=== PATIENT | female | born 1965 | race Hispanic/Latino ===

== ENCOUNTER 2021-02-05 11:49 | Emergency (ER) | payer SELFPAY ==
[2021-02-05] MEDS ORDERED: ASPIRIN 325 MG TAB PO ONE (12:09)
--- NOTE | 2021-02-05 12:17 | Event Note ---
ED Screening Note Date of service: 02/05/21 Time: 12:15 ED Screening Note: Patient with substernal chest pain radiating to the back. Onset this morning. She reports nausea but no vomiting. She denies any other symptoms. She denies any heart disease. She denies any lung disease. She denies any other significant past history. This initial assessment/diagnostic orders/clinical plan/treatment(s) is/are subject to change based on patients health status, clinical progression and re-assessment by fellow clinical providers in the ED. Further treatment and workup at subsequent clinical providers discretion. Patient/guardian urged not to elope from the ED as their condition may be serious if not clinically assessed and managed. Initial orders include: Chest pain order set
--- NOTE | 2021-02-05 12:45 | XRay Report ---
CHEST 2 VIEWS INDICATION / CLINICAL INFORMATION: Chest Pain. COMPARISON: None available. FINDINGS: SUPPORT DEVICES: None. HEART / MEDIASTINUM: No significant abnormality. LUNGS / PLEURA: No significant pulmonary or pleural abnormality. No pneumothorax. ADDITIONAL FINDINGS: No significant additional findings. IMPRESSION: 1. No acute findings. Signer Name: Marcel Mares MD Signed: 02/05/2021 12:41 PM Workstation Name: [id number]
[2021-02-05 12:46] LABS: Basophils % (Auto) 0.3 % (0.0-1.8); Eosinophils % (Auto) 0.3 % (0.0-4.3); Hematocrit 43.1 % (30.3-42.9); Hemoglobin 15.1 gm/dl (10.1-14.3); Lymphocytes # (Auto) 0.9 K/mm3 (1.2-5.4); Lymphocytes % (Auto) 14.5 % (13.4-35.0); Mean Corpuscular HGB Conc 35 % (30-34); Mean Corpuscular Volume 89 fl (79-97); Monocytes # (Auto) 0.3 K/mm3 (0.0-0.8); Monocytes % (Auto) 4.1 % (0.0-7.3); Platelet Count 242 K/mm3 (140-440); Red Blood Count 4.86 M/mm3 (3.65-5.03); Red Cell Distribution Width 12.8 % (13.2-15.2)
[2021-02-05 13:02] VITALS: BP 164/90
[2021-02-05] MEDS ORDERED: PANTOPRAZOLE 40 MG INJ IV ONE (13:04)
[2021-02-05] MEDS ORDERED: MORPHINE 4 MG/1 ML INJ IV ONE (13:04)
[2021-02-05] MEDS ORDERED: ONDANSETRON 4 MG/2 ML INJ IV ONE (13:04)
--- NOTE | 2021-02-05 13:04 | Emergency Department Report ---
ED Chest Pain HPI - General Chief Complaint: Chest Pain Stated Complaint: CHEST TO BACK PAINS Time Seen by Provider: 02/05/21 12:13 Source: patient Mode of arrival: Ambulatory Limitations: No Limitations - History of Present Illness Initial Comments: Patient is 55 years old female with no significant past medical history except for kidney stone. Patient presented to the ER complaining of epigastric pain with no radiation. Patient stated that pain started this morning. Patient stated that the pain associated with nausea but no vomiting. Patient denied any fever or chills. No shortness of breath. MD Complaint: chest pain -: This morning Onset: during rest Pain Location: substernal Pain Radiation: none Severity: moderate Severity scale (0 -10): 5 Quality: sharp Consistency: intermittent - Related Data Allergies Allergy/AdvReac Type Severity Reaction Status Date / Time Latex, Natural Rubber Allergy Itching Verified 02/05/21 11:50 Heart Score - HEART Score History: Slightly suspicious EKG: Non-specific Age: 45-65 Risk factors: 1-2 risk factors Troponin: < normal limit HEART Score: 3 - Critical Actions Critical Actions: 0-3 pts:0.9-1.7%risk of adverse cardiac event.Candidate for discharge ED Review of Systems ROS: Stated complaint: CHEST TO BACK PAINS Other details as noted in HPI Comment: All other systems reviewed and negative Constitutional: denies: chills, fever Respiratory: denies: cough, shortness of breath, SOB with exertion Cardiovascular: chest pain. denies: palpitations, dyspnea on exertion Gastrointestinal: abdominal pain, nausea. denies: vomiting, diarrhea, constipation, hematemesis, melena, hematochezia Musculoskeletal: denies: back pain Neurological: denies: headache, weakness ED Past Medical Hx - Past Medical History Previous Medical History?: No - Surgical History Past Surgical History?: Yes Hx Cholecystectomy: Yes Additional Surgical History: T&A. kidney surgery - Social History Smoking Status: Never Smoker Substance Use Type: None ED Physical Exam - General Limitations: No Limitations General appearance: alert, in no apparent distress - Head Head exam: Present: atraumatic, normocephalic, normal inspection - Eye Eye exam: Present: normal appearance, PERRL - ENT ENT exam: Present: normal exam, normal orophraynx, mucous membranes moist - Neck Neck exam: Present: normal inspection, full ROM. Absent: tenderness, meningismus - Respiratory Respiratory exam: Present: normal lung sounds bilaterally - Cardiovascular Cardiovascular Exam: Present: regular rate, normal rhythm, normal heart sounds - GI/Abdominal GI/Abdominal exam: Present: soft, normal bowel sounds. Absent: distended, tenderness, guarding, rebound, rigid, organomegaly, mass, bruit, pulsatile mass - Extremities Exam Extremities exam: Present: normal inspection, full ROM, normal capillary refill. Absent: tenderness - Back Exam Back exam: Present: normal inspection, full ROM. Absent: CVA tenderness (R), CVA tenderness (L) - Neurological Exam Neurological exam: Present: alert, oriented X3, CN II-XII intact, normal gait, reflexes normal. Absent: motor sensory deficit - Psychiatric Psychiatric exam: Present: normal mood - Skin Skin exam: Present: warm, intact, normal color ED Course Vital Signs 02/05/21 02/05/21 11:50 12:59 Temperature 98.0 F 98.2 F Pulse Rate 118 H 111 H Respiratory 18 18 Rate Blood Pressure 163/105 Blood Pressure 164/90 [Right] O2 Sat by Pulse 99 100 Oximetry ED Medical Decision Making - Lab Data Result diagrams: 02/05/21 12:15 02/05/21 12:15 - EKG Data -: EKG Interpreted by Or EKG shows normal: sinus rhythm Rate: tachycardia - EKG Data Interpretation: no acute changes - Radiology Data Radiology results: report reviewed - Medical Decision Making Patient is 55 years old female with no significant past medical history except for kidney stone. Patient presented to the ER complaining of epigastric pain with no radiation. Patient stated that pain started this morning. Patient stated that the pain associated with nausea but no vomiting. Patient denied any fever or chills. No shortness of breath. EKG shows sinus tachycardia. Patient stated that she is usually anxious. Labs reviewed and is unremarkable. CT abdomen and pelvis with IV contrast is negati ve for acute finding. Troponin is negative x2. Patient chest pain is atypical however patient strongly advised to follow-up with her primary care physician for outpatient cardiac work-up. Patient also advised to return to the ER if she develop any new symptoms. Critical care attestation.: If time is entered above; I have spent that time in minutes in the direct care of this critically ill patient, excluding procedure time. ED Disposition Clinical Impression: Acute chest pain, Acute abdominal pain Disposition: DC-01 TO HOME OR SELFCARE Is pt being admited?: No Condition: Stable Instructions: Chest Pain (ED), Nonspecific Chest Pain, Adult, Abdominal Pain, Adult Referrals: [facility] [Other] - 3-5 Days
[2021-02-05 13:05] LABS: Alanine Aminotransferase 27 units/L (7-56); Albumin 4.1 g/dL (3.9-5); Blood Urea Nitrogen 17 mg/dL (7-17); Calcium 9.3 mg/dL (8.4-10.2); Hemolysis Index 4
[2021-02-05 13:19] LABS: BUN/Creatinine Ratio 28
[2021-02-05 13:39] LABS: INR 0.97 (0.87-1.13); Partial Thromboplastin Time 29.6 Sec. (24.2-36.6)
--- NOTE | 2021-02-05 14:25 | Cat Scan Report ---
CT ABDOMEN AND PELVIS WITH CONTRAST INDICATION / CLINICAL INFORMATION: Abdominal pain. TECHNIQUE: Axial CT images were obtained through the abdomen and pelvis after Omnipaque 300, 100 cc I V contrast. All CT scans at this location are performed using CT dose reduction for ALARA by means o f automated exposure control. COMPARISON: None available. FINDINGS: LOWER CHEST: No significant abnormality. LIVER: Small low-density lesions. GALLBLADDER: Surgically absent. BILE DUCTS: No significant abnormality. PANCREAS: No significant abnormality. SPLEEN: No significant abnormality. ADRENALS: No significant abnormality. RIGHT KIDNEY / URETER: 1.2 cm cyst upper pole. LEFT KIDNEY / URETER: 1.1 cm cyst upper pole. 2 nonobstructing stones measuring no larger than 3 mm. STOMACH / SMALL BOWEL: No significant abnormality. COLON: Scattered noninflamed diverticulosis is seen diffusely. APPENDIX: No significant abnormality. PERITONEUM: No free fluid. No free air. No fluid collection. LYMPH NODES: No significant adenopathy. VASCULAR STRUCTURES: No significant abnormality. URINARY BLADDER: No significant abnormality. REPRODUCTIVE ORGANS: No significant abnormality. ADDITIONAL FINDINGS: None. SKELETAL SYSTEM: No significant abnormality. IMPRESSION: 1. No abdominal inflammatory process. 2. Small low-density liver lesions aren't not well characterized but likely incidental in the absence of known malignancy. 3. Small nonobstructing left renal stones. 4. Noninflamed colonic diverticulosis. Signer Name: Sanya Norton MD Signed: 02/05/2021 2:20 PM Workstation Name: [id number]
== END 2021-02-05 16:51 | disposition home or self-care (01) ==
LOC: ED 11:49
DX: R07.9 Chest pain, unspecified (principal); R10.13 Epigastric pain; Z79.899 Other long term (current) drug therapy; Z91.040 Latex allergy status; Z91.048 Other nonmedicinal substance allergy status; Z90.49 Acquired absence of other specified parts of digestive tract; Z98.890 Other specified postprocedural states
CPT/HCPCS: 36415; 71046; 74177; 80053; 83690; 83880; 84484; 85025; 85610; 85730; 93005; 96374; 96375; 99284; C9113; J2405; Q9967

== ENCOUNTER 2021-03-25 16:59 | Observation (INO) | payer SELFPAY ==
[2021-03-25] MEDS ORDERED: ASPIRIN 325 MG TAB PO ONE (17:14)
--- NOTE | 2021-03-25 17:54 | Event Note ---
ED Screening Note Date of service: 03/25/21 Time: 17:53 ED Screening Note: 55-year-old female patient presents to the emergency department with complaints of chest pain starting 2 days ago. Patient describes the pain as "stabbing." Pain began at rest; worse with exertion. The pain is intermittent, nonradiating, and lasts for a matter of seconds when it is present. Last stress test was in 2017. No known history of cardiopulmonary disease. Patient does not use tobacco. No venous thromboembolism risk factors identified on history. Tachycardic in triage. Pulse oximetry 93% on room air. General: Awake, appropriately interactive, no acute distress. Neck: Supple. Full range of motion intact. Cardiovascular: Tachycardic. Normal peripheral perfusion. Pulmonary: Clear to auscultation. No respiratory distress. Patient is speaking normally without use of accessory muscles. Skin: No apparent rashes or lesions. Neurological: No facial asymmetry. Speech is clear. Follows commands. Patient is alert and oriented. Musculoskeletal: Moves all four extremities spontaneously with normal range of motion. Psych: Cooperative. Appropriate mood and affect. Cardiac work-up initiated; decision to pursue further PE work-up deferred to additional ED providers. I have greeted and performed a focused rapid initial assessment of this patient. A comprehensive ED assessment and evaluation of the patient, analysis of all test results, and completion of the medical decision-making process will be conducted by additional ED providers. This initial assessment/diagnostic orders/clinical plan/treatment(s) is/are subject to change based on patients health status, clinical progression and re-assessment. Further treatment and workup at subsequent clinical provider's discretion. Patient/guardian urged not to elope from the ED as their condition may be serious if not clinically assessed and managed.
--- NOTE | 2021-03-25 17:58 | XRay Report ---
CHEST PA AND LATERAL VIEWS INDICATION: chest pain. COMPARISON: 02/05/2021 FINDINGS: Support devices: None Heart: Normal and unchanged Lungs/Pleura: No acute pulmonary or pleural findings. IMPRESSION: 1. No acute disease and no interval change. Signer Name: Trev Madsen MD Signed: 03/25/2021 5:53 PM Workstation Name: [id number]
[2021-03-25 18:13] LABS: Basophils % (Auto) 0.4 % (0.0-1.8); Eosinophils % (Auto) 0.2 % (0.0-4.3); Hematocrit 44.4 % (30.3-42.9); Hemoglobin 15.2 gm/dl (10.1-14.3); Lymphocytes % (Auto) 12.8 % (13.4-35.0); Mean Corpuscular HGB Conc 34 % (30-34); Mean Corpuscular Volume 91 fl (79-97); Monocytes # (Auto) 0.4 K/mm3 (0.0-0.8); Monocytes % (Auto) 5.5 % (0.0-7.3); Platelet Count 256 K/mm3 (140-440); Red Blood Count 4.88 M/mm3 (3.65-5.03); Red Cell Distribution Width 12.9 % (13.2-15.2)
[2021-03-25 18:24] LABS: Partial Thromboplastin Time 29.2 Sec. (24.2-36.6)
[2021-03-25 18:33] LABS: Alanine Aminotransferase 21 units/L (7-56); Albumin 3.9 g/dL (3.9-5); Blood Urea Nitrogen 15 mg/dL (7-17); Calcium 9.1 mg/dL (8.4-10.2); Hemolysis Index 27
[2021-03-25 18:41] LABS: BUN/Creatinine Ratio 25
--- NOTE | 2021-03-25 21:34 | Emergency Department Report ---
HPI - General Chief Complaint: Chest Pain Time Seen by Provider: 03/25/21 21:19 - HPI HPI: Room 18 The patient is a 55-year-old female present with a chief complaint of chest pain. Patient states for the past 3 days she has had intermittent right-sided chest pain described as burning in nature associated with nausea no vomiting. Patient denies shortness of breath or diaphoresis. Patient denies history of cough or pleurisy. Patient denies any recent flights or long car trips. Patient denies any breast lesions. Patient states her last stress test occurred in 2016 but she is never had a cardiac catheterization ED Past Medical Hx - Past Medical History Previous Medical History?: No - Surgical History Hx Cholecystectomy: Yes Additional Surgical History: T&A. Bladder lesions removed (benign) - Family History Family history: no significant - Social History Smoking Status: Never Smoker Substance Use Type: None (Denies illicit drug use) - Medications Home Medications: Home Medications Medication Instructions Recorded Confirmed Last Taken Type Ondansetron [Zofran Odt] 4 mg PO Q8HR PRN #14 tab.rapdis 02/05/21 Unknown Rx Pantoprazole [Protonix] 40 mg PO QDAY #30 tablet 02/05/21 Unknown Rx traMADoL [Ultram 50 MG tab] 50 mg PO Q4HR PRN #14 tablet 02/05/21 Unknown Rx ED Review of Systems ROS: Stated complaint: SHARP RT SIDE BREAST PAIN Other details as noted in HPI Constitutional: denies: diaphoresis Eyes: denies: eye pain ENT: denies: throat pain Respiratory: denies: shortness of breath Cardiovascular: chest pain Endocrine: no symptoms reported Gastrointestinal: nausea. denies: abdominal pain, vomiting Genitourinary: denies: dysuria Musculoskeletal: denies: back pain Skin: denies: lesions Neurological: denies: headache Physical Exam - Physical Exam Vital Signs: Vital Signs 03/25/21 17:43 Temperature 99.2 F Pulse Rate 113 H Respiratory 20 Rate Blood Pressure 118/88 O2 Sat by Pulse 93 Oximetry Physical Exam: GENERAL: The patient is well-developed well-nourished female lying on stretcher not appearing to be in acute distress. [] HEENT: Normocephalic. Atraumatic. Extraocular motions are intact. Patient has moist mucous membranes. NECK: Supple. Trachea midline CHEST/LUNGS: Clear to auscultation. There is no respiratory distress noted. HEART/CARDIOVASCULAR: Regular. There is no tachycardia. There is no gallop rub or murmur. ABDOMEN: Abdomen is soft, nontender. Patient has normal bowel sounds. There is no abdominal distention. SKIN: There is no rash. There is no edema. There is no diaphoresis. NEURO: The patient is awake, alert, and oriented. The patient is cooperative. The patient has no focal neurologic deficits. The patient has normal speech MUSCULOSKELETAL: There is mild "soreness" per patient to palpation of bilateral lower extremity. There is no evidence of acute injury. ED Course Vital Signs 03/25/21 17:43 Temperature 99.2 F Pulse Rate 113 H Respiratory 20 Rate Blood Pressure 118/88 O2 Sat by Pulse 93 Oximetry ED Medical Decision Making - Lab Data Result diagrams: 03/25/21 17:56 03/25/21 17:56 Laboratory Tests 03/25/21 03/25/21 03/25/21 17:56 17:56 17:59 WBC 7.9 RBC 4.88 Hgb 15.2 H Hct 44.4 H MCV 91 MCH 31 MCHC 34 RDW 12.9 L Plt Count 256 Lymph % (Auto) 12.8 L Dod[place] % (Auto) 5.5 Eos % (Auto) 0.2 Baso % (Auto) 0.4 Lymph # (Auto) 1.0 L [place] # (Auto) 0.4 Eos # (Auto) 0.0 Baso # (Auto) 0.0 Seg Neutrophils % 81.1 H Seg Neutrophils # 6.4 PT 13.1 INR 1.00 APTT 29.2 D-Dimer Sodium 138 Potassium 3.8 Chloride 104.7 Carbon Dioxide 23 Anion Gap 14 BUN 15 Creatinine 0.6 Estimated GFR > 60 BUN/Creatinine Ratio 25 Glucose 94 Calcium 9.1 Magnesium Total Bilirubin 0.30 AST 17 ALT 21 Alkaline Phosphatase 82 Troponin T < 0.010 Total Protein 6.5 Albumin 3.9 Albumin/Globulin Ratio 1.5 03/25/21 03/25/21 03/25/21 17:59 17:59 20:21 WBC RBC Hgb Hct MCV MCH MCHC RDW Plt Count Lymph % (Auto) Dod[place]idge % (Auto) Eos % (Auto) Baso % (Auto) Lymph # (Auto) Dod[place]idge # (Auto) Eos # (Auto) Baso # (Auto) Seg Neutrophils % Seg Neutrophils # PT INR APTT D-Dimer < 135 Sodium Potassium Chloride Carbon Dioxide Anion Gap BUN Creatinine Estimated GFR BUN/Creatinine Ratio Glucose Calcium Magnesium 1.70 Total Bilirubin AST ALT Alkaline Phosphatase Troponin T < 0.010 Total Protein Albumin Albumin/Globulin Ratio - EKG Data -: EKG Interpreted by Me EKG shows normal: sinus rhythm Rate: tachycardia - EKG Data When compared to previous EKG there are: changes noted Interpretation: subendocardial ischemia (ST depressions inferolaterally) - Radiology Data Radiology results: report reviewed (Chest x-ray), image reviewed (Chest x-ray) interpreted by me: Chest x-ray-no focal infiltrates, no pneumothorax. No foreign body seen [facility] [address] [place] [address] XRay Report Signed Patient: LISA MENDOZA MR#: [id number] : 1965 Acct:[id number] Age/Sex: 55 / F ADM Date: 03/25/21 Loc: ED Attending Dr: Ordering Physician: HERNESTO LI MD Date of Service: 03/25/21 Procedure(s): XR chest routine 2V Accession Number(s): [id number] cc: ED MD JEN Fluoro Time In Minutes: CHEST PA AND LATERAL VIEWS INDICATION: chest pain. COMPARISON: 02/05/2021 FINDINGS: Support devices: None Heart: Normal and unchanged Lungs/Pleura: No acute pulmonary or pleural findings. IMPRESSION: 1. No acute disease and no inte rval change. Signer Name: Trev Madsen MD Signed: 03/25/2021 5:53 PM Workstation Name: [id number] Transcribed By: TM Dictated By: Trev Madsen MD Electronically Authenticated By: Trev Madsen MD Signed Date/Time: 03/25/211752 DD/ 51 TD/TT: Print Cancel - Differential Diagnosis ACS, PE, GERD, pericarditis Critical care attestation.: If time is entered above; I have spent that time in minutes in the direct care of this critically ill patient, excluding procedure time. ED Disposition Clinical Impression: Chest pain, ST segment depression Disposition: OP ADMIT IP TO THIS HOSP Is pt being admited?: Yes Does the pt Need Aspirin: Yes Condition: Fair Instructions: Nonspecific Chest Pain, Adult Referrals: PRIMARY CARE,MD [Primary Care Provider] - 3-5 Days Time of Disposition: 22:14 (Hospitalist paged (Dr Mcintosh)) Heart Score - HEART Score History: Moderately suspicious EKG: Significant ST-depression Age: 45-65 Risk factors: No known risk factors Troponin: < normal limit HEART Score: 4 - EKG Read Time Time EKG Completed: 17:11 EKG Read Time: 17:15
--- NOTE | 2021-03-25 22:18 | History and Physical Report ---
History of Present Illness Date of examination: 03/25/21 Date of admission: 03/25/2021 Chief complaint: Chest Pain History of present illness: 55-year-old white female with no significant past medical history presenting in the emergency room today complaining of chest pain has been ongoing for the past 3 days. Chest pain has been intermittent and has been going from the right side of her chest to the left side of her chest. She has had associated nausea but no vomiting. Denies any headache or dizziness. Denies any diaphoresis. She denies any cough or shortness of breath. There is no no relieving or exacerbating factor for chest pain. There has been no radiation. Patient had a normal stress test in 2017. No history of cardiac catheterization. Work-up in the emergency room today, chest x-ray, troponin levels were unremarkable. She however has some ST depression in the inferolateral leads. Patient is being admitted for chest pain evaluation. Past History Past Surgical History: cholecystectomy, Other (T&A,Bladder surgery for a lesion.) Social history: no significant social history Family history: no significant family history Medications and Allergies Allergies Allergy/AdvReac Type Severity Reaction Status Date / Time Latex, Natural Rubber Allergy Itching Verified 03/25/21 17:08 Home Medications Medication Instructions Recorded Confirmed Last Taken Type Ondansetron [Zofran Odt] 4 mg PO Q8HR PRN #14 tab.rapdis 02/05/21 Unknown Rx Pantoprazole [Protonix] 40 mg PO QDAY #30 tablet 02/05/21 Unknown Rx traMADoL [Ultram 50 MG tab] 50 mg PO Q4HR PRN #14 tablet 02/05/21 Unknown Rx Review of Systems Constitutional: no fever, no chills Ears, nose, mouth and throat: no nasal congestion, no sore throat Cardiovascular: chest pain, no palpitations, no syncope Respiratory: no cough, no shortness of breath Gastrointestinal: no abdominal pain, no nausea, no vomiting, no diarrhea Genitourinary Female: no pelvic pain, no flank pain, no dysuria, no hematuria Musculoskeletal: no neck pain, no low back pain Integumentary: no rash, no pruritis Neurological: no headaches, no confusion Psychiatric: no anxiety, no depression Endocrine: no polyphagia, no polydipsia, no polyuria, no nocturia Exam - Constitutional Vitals: Temp Pulse Resp BP Pulse Ox 99.2 F 113 H 20 118/88 93 03/25/21 17:43 03/25/21 17:43 03/25/21 17:43 03/25/21 17:43 03/25/21 17:43 General appearance: Present: no acute distress, well-nourished - EENT Eyes: Present: PERRL, EOM intact. Absent: scleral icterus ENT: hearing intact, clear oral mucosa, dentition normal - Neck Neck: Present: supple, normal ROM - Respiratory Respiratory effort: normal Respiratory: bilateral: CTA - Cardiovascular Rhythm: regular Heart Sounds: Present: S1 & S2. Absent: gallop, systolic murmur, diastolic murmur, rub, click - Extremities Extremities: no ischemia, pulses intact, pulses symmetrical, No edema, normal temperature, normal color, Full ROM Peripheral Pulses: within normal limits - Abdominal General gastrointestinal: Present: soft, non-tender, non-distended, normal bowel sounds. Absent: mass - Integumentary Integumentary: Present: clear, warm, dry. Absent: rash - Musculoskeletal Musculoskeletal: strength equal bilaterally - Psychiatric Psychiatric: appropriate mood/affect, intact judgment & insight, memory intact, cooperative - Neurologic Neurologic: CNII-XII intact, no focal deficits, moves all extremities HEART Score - HEART Score History: Moderately suspicious EKG: Significant ST-depression Age: 45-65 Risk factors: No known risk factors Troponin: Troponin T < 0.010 ng/mL (0.00-0.029) 03/25/21 20:21 Troponin: < normal limit HEART Score: 4 Results - Labs CBC & Chem 7: 03/25/21 17:56 03/25/21 17:56 Labs: Abnormal lab results 03/25/21 Range/Units 17:56 Hgb 15.2 H (10.1-14.3) gm/dl Hct 44.4 H (30.3-42.9) % RDW 12.9 L (13.2-15.2) % Lymph % (Auto) 12.8 L (13.4-35.0) % Lymph # (Auto) 1.0 L (1.2-5.4) K/mm3 Seg Neutrophils % 81.1 H (40.0-70.0) % Assessment and Plan - Patient Problems (1) Chest pain Current Visit: Yes Status: Acute Plan to address problem: Patient admitted and placed on telemetry. Will monitor cardiac enzymes. Patient placed on aspirin, sublingual nitroglycerin and IV morphine as needed for chest pain. We will place consult to cardiology for evaluation. (2) DVT prophylaxis Current Visit: Yes Status: Acute Plan to address problem: Patient placed on subcutaneous heparin. (3) Full code status Current Visit: Yes Status: Acute Plan to address problem: Patient is full code.
[2021-03-25] MEDS: ASPIRIN 325 MG TAB PO ONE ×2 (22:30→22:35)
[2021-03-25] MEDS ORDERED: MAGNESIUM HYDROXIDE (MOM) ORAL LIQD UDC PO PRN (23:27)
[2021-03-25] MEDS ORDERED: ONDANSETRON 4 MG/2 ML INJ IV PRN (23:27)
[2021-03-25] MEDS ORDERED: MORPHINE 2 MG/1 ML INJ IV PRN (23:27)
[2021-03-25] MEDS ORDERED: ACETAMINOPHEN 325 MG TAB PO PRN ×2 (23:27)
[2021-03-25] MEDS ORDERED: traMADol 50 MG TAB PO PRN (23:27)
[2021-03-25] MEDS ORDERED: NITROGLYCERIN 0.4 MG TAB SUBL SL PRN (23:27)
[2021-03-26 04:22] VITALS: BP 144/79
[2021-03-26] MEDS ORDERED: HEPARIN 5,000 UNIT/1 ML VIAL SUB-Q SCH (06:00)
[2021-03-26 06:30] LABS: Basophils % (Auto) 0.4 % (0.0-1.8); Eosinophils % (Auto) 0.2 % (0.0-4.3); Hematocrit 43.8 % (30.3-42.9); Hemoglobin 14.6 gm/dl (10.1-14.3); Lymphocytes # (Auto) 1.6 K/mm3 (1.2-5.4); Mean Corpuscular HGB Conc 33 % (30-34); Mean Corpuscular Volume 91 fl (79-97); Monocytes # (Auto) 0.4 K/mm3 (0.0-0.8); Monocytes % (Auto) 6.2 % (0.0-7.3); Platelet Count 246 K/mm3 (140-440); Red Blood Count 4.82 M/mm3 (3.65-5.03); Red Cell Distribution Width 13.2 % (13.2-15.2)
[2021-03-26 06:38] LABS: INR 1.02 (0.87-1.13)
[2021-03-26 06:48] LABS: Chol/HDL Ratio 2.6 %
[2021-03-26 07:35] LABS: Blood Urea Nitrogen 14 mg/dL (7-17); Calcium 8.9 mg/dL (8.4-10.2); Hemolysis Index 5
[2021-03-26 07:45] LABS: BUN/Creatinine Ratio 35
[2021-03-26] MEDS ORDERED: REGADENOSON 0.4 MG/5 ML INJ IV ONE (08:28)
[2021-03-26] MEDS ORDERED: ASPIRIN EC 325 MG TAB PO SCH (10:00)
--- NOTE | 2021-03-26 10:30 | Discharge Summary ---
Providers - Providers Date of Admission: 03/25/21 22:29 Attending physician: CHARMAINE HATHAWAY MD 03/25/21 Consult to Cardiac Rehabilitation [CONS] Routine Reason For Exam: Phase I 03/25/21 23:28 Consult to Cardiology [CONS] Routine Consulting Provider: LENNY FORRESTER Reason For Exam: Chest pain Primary care physician: HEEL MOLDER Hospitalization Reason for admission: Chest pain Condition: Stable Hospital course: 55-year-old white female with no significant past medical history presenting in the emergency room today complaining of chest pain has been ongoing for the past 3 days. Chest pain has been intermittent and has been going from the right side of her chest to the left side of her chest. She has had associated nausea but no vomiting. Denies any headache or dizziness. Denies any diaphoresis. She denies any cough or shortness of breath. There is no no relieving or exacerbating factor for chest pain. There has been no radiation. Patient had a normal stress test in 2017. No history of cardiac catheterization. Work-up in the emergency room today, chest x-ray, troponin levels were unremarkable. She however has some ST depression in the inferolateral leads. Patient is being admitted for chest pain evaluation. Patient was evaluated plan for stress test she claims to request a full beacon her chest pain has resolved. At this point she is stable for discharge I recommended an outpatient follow-up with cardiology she verbalized understanding. Atypical chest pain likely secondary to costochondritis Abnormal EKG with ST depression in inferior leads Anxiety Disposition: DC-01 TO HOME OR SELFCARE Final Discharge Diagnosis (Prints w/discharge instructions): Atypical chest pain secondary to costochondritis Time spent for discharge: 35 mins Core Measure Documentation - Palliative Care Palliative Care/ Comfort Measures: Not Applicable - Core Measures Any of the following diagnoses?: none Exam - Physical Exam Narrative exam: VITAL SIGNS: Reviewed. GENERAL: The patient appears normally developed, Vital signs as documented. HEAD: No signs of head trauma. EYES: Pupils are equal. Extraocular motions intact. EARS: Hearing grossly intact. MOUTH: Oropharynx is normal. NECK: No adenopathy, no JVD. CHEST: Chest with clear breath sounds bilaterally. No wheezes, rales, or rhonchi. CARDIAC: Regular rate and rhythm. S1 and S2, without murmurs, gallops, or rubs. VASCULAR: No Edema. Peripheral pulses normal and equal in all extremities. ABDOMEN: Soft, non tender and non distended. No rebound or guarding, and no masses palpated. Bowel Sounds normal. MUSCULOSKELETAL: Good range of motion of all major joints. Extremities without clubbing, cyanosis or edema. NEUROLOGIC EXAM: Alert and oriented x 3 No focal sensory or strength deficits. Speech normal. Follows commands. PSYCHIATRIC: Mood normal. SKIN: detail exam as documented in skin assessment - Constitutional Vitals: Temp Pulse Resp BP Pulse Ox 97.8 F 92 H 14 144/79 98 03/26/21 03:29 03/26/21 08:59 03/26/21 03:29 03/26/21 03:29 03/26/21 03:29 Plan Activity: advance as tolerated, fall precautions, other (No strenuous activity until evaluated by cardiology outpatient) Diet: low fat Special Instructions: record daily weights, record daily BP diary, record blood sugar diary Follow up with: MIRIAM REEVES MD [Staff Physician] - 7 Days PRIMARY CARE, [Primary Care Provider] - 3-5 Days TASHIA AMBRIZ MD [Staff Physician] - 7 Days Prescriptions: Aspirin [Adult Aspirin] 81 mg PO DAILY #30 tablet.
--- NOTE | 2021-03-26 14:35 | Consultation ---
History of Present Illness Consult date: 03/26/21 Requesting physician: MATIAS MARTINES History of present illness: This patient is a 55-year-old female with no known significant past medical history. She is previously unknown to our practice. Patient presents to [facility] via ER complaining of intermittent chest pain x3 days. Chest pain is described as traveling from the right to left side of her chest, nonradiating. Chest pain is associated with nausea but patient denies vomiting. No relieving or exacerbating factors for her symptoms. 12-lead reviewed: No ST segment elevation. Troponins are negative. AMI ruled out. Patient reports normal cardiac stress test in 2017. She is not currently followed by cardiology. She has never had a heart cath. Due to risk factors patient is scheduled for Lexiscan MPI this a.m. Patient was unable to complete Lexiscan MPI due to claustrophobia. No further plans for inpatient testing. Patient may discharge from cardiology perspective. May pursue outpatient ischemic evaluation at patient's request. Past History Past Medical History: other (See HPI) Past Surgical History: cholecystectomy, Other (T&A,Bladder surgery for a les ion.) Social history: no significant social history Family history: no significant family history Medications and Allergies Allergies Allergy/AdvReac Type Severity Reaction Status Date / Time Latex, Natural Rubber Allergy Itching Verified 03/25/21 17:08 Home Medications Medication Instructions Recorded Confirmed Last Taken Type Ondansetron [Zofran ODT TAB] 4 mg PO Q8HR PRN #14 tab.rapdis 02/05/21 03/26/21 03/25/21 Rx Pantoprazole [Protonix TAB] 40 mg PO QDAY #30 tablet 02/05/21 03/26/21 03/25/21 Rx traMADoL [Ultram 50 MG tab] 50 mg PO Q4HR PRN #14 tablet 02/05/21 03/26/21 03/26/21 02:03 Rx Aspirin [Adult Aspirin] 81 mg PO DAILY #30 tablet. 03/26/21 Unknown Rx Review of Systems Constitutional: no weight loss, no weight gain, no fever, no chills, no sweats Ears, nose, mouth and throat: no ear pain, no ear discharge, no nasal congestion, no nasal discharge, no sinus pressure Cardiovascular: chest pain, no orthopnea, no palpitations, no rapid/irregular heart beat, no edema, no syncope, no lightheadedness Respiratory: no cough, no hemoptysis, no shortness of breath Gastrointestinal: nausea, no abdominal pain, no vomiting, no diarrhea Genitourinary Female: no pelvic pain, no flank pain Musculoskeletal: no neck stiffness, no neck pain, no shooting arm pain, no arm numbness/tingling, no low back pain, no shooting leg pain Integumentary: no rash, no pruritis, no redness, no sores, no wounds Psychiatric: no anxiety Endocrine: no cold intolerance, no heat intolerance Hematologic/Lymphatic: no easy bruising, no easy bleeding Allergic/Immunologic: no urticaria Physical Examination Last Vital Signs Temp 97.8 F 03/26/21 03:29 Pulse 92 H 03/26/21 10:00 Resp 14 03/26/21 03:29 BP 144/79 03/26/21 03:29 Pulse Ox 98 03/26/21 03:29 General appearance: no acute distress HEENT: Positive: PERRL, Normocephaly, Mucus Membranes Moist Neck: Positive: neck supple, trachea midline Cardiac: Positive: Reg Rate and Rhythm, S1/S2 Lungs: Positive: clear to auscultation, Normal Breath Sounds Neuro: Positive: Grossly Intact Abdomen: Positive: Unremarkable, Soft Skin: Negative: Rash, Wound Musculoskeletal: No Pain Extremities: Present: upper extr. pulses, lower extr. pulses. Absent: edema Results 03/26/21 05:37 03/26/21 05:37 Cardiac Enzymes 03/25/21 Range/Units 17:56 AST 17 (5-40) units/L Coagulation 03/25/21 03/26/21 Range/Units 17:59 05:37 PT 13.1 13.3 (12.2-14.9) Sec. INR 1.00 1.02 (0.87-1.13) APTT 29.2 (24.2-36.6) Sec. Lipids 03/26/21 Range/Units 05:37 Triglycerides 42 (2-149) mg/dL Cholesterol 151 (50-199) mg/dL HDL Cholesterol 58 (40-59) mg/dL Cholesterol/HDL Ratio 2.60 % CBC 03/25/21 03/26/21 Range/Units 17:56 05:37 WBC 7.9 6.9 (4.5-11.0) K/mm3 RBC 4.88 4.82 (3.65-5.03) M/mm3 Hgb 15.2 H 14.6 H (10.1-14.3) gm/dl Hct 44.4 H 43.8 H (30.3-42.9) % Plt Count 256 246 (140-440) K/mm3 Lymph # (Auto) 1.0 L 1.6 (1.2-5.4) K/mm3 [place] # (Auto) 0.4 0.4 (0.0-0.8) K/mm3 Eos # (Auto) 0.0 0.0 (0.0-0.4) K/mm3 Baso # (Auto) 0.0 0.0 (0.0-0.1) K/mm3 Comprehensive Metabolic Panel 03/25/21 03/26/21 Range/Units 17:56 05:37 Sodium 138 143 (137-145) mmol/L Potassium 3.8 3.7 (3.6-5.0) mmol/L Chloride 104.7 105.1 (98-107) mmol/L Carbon Dioxide 23 23 (22-30) mmol/L BUN 15 14 (7-17) mg/dL Creatinine 0.6 0.4 L (0.6-1.2) mg/dL Glucose 94 94 (65-100) mg/dL Calcium 9.1 8.9 (8.4-10.2) mg/dL AST 17 (5-40) units/L ALT 21 (7-56) units/L Alkaline Phosphatase 82 (35-129) units/L Total Protein 6.5 (6.3-8.2) g/dL Albumin 3.9 (3.9-5) g/dL - Imaging and Cardiology Echo: pending EKG: report reviewed, image reviewed EKG interpretations - Telemetry EKG Rhythm: Sinus Rhythm - EKG Sinus rhythms and dysrhythmias: sinus rhythm Assessment and Plan Telemetry reviewed: Sinus tach 103. No events Chest pain Patient is currently chest pain-free and requesting to be discharged. Twelve-lead reviewed no ST segment elevation. Troponins are negative x2. Ec hocardiogram is pending read. Patient unwilling to undergo stress testing due to claustrophobia. No further plans for ischemic eval at this time. Hypertension Recommend follow-up with PCP DVT prophylaxis SCDs ordered Patient is currently stable cardiac status. The patient's request, no further plans for ischemic eval in hospital setting. Recommend patient follow-up with Dr Osorio in our office within 1 to 2 weeks of discharge. #[id number] This patient was seen in conjunction with Dr Pantoja who agrees with this assessment and plan of care - Patient Problems (1) Chest pain Status: Acute (2) DVT prophylaxis Status: Acute (3) Hypertension Status: Chronic
--- NOTE | 2021-03-27 12:58 | Electrocardiograph Report ---
[facility] Test Date: 2021-03-25 Test Time: 17:11:03 Pat Name: LISA MENDOZA Department: Room: A477 1 Gender: F Commercial Roofer: DARSHAN : 1965 Requested By: MARIA M OCAMPO Order Number: [id number] Reading MD: Sam Liu Measurements Intervals [place] Rate: 109 P: 80 TX: 147 QRS: 56 QRSD: 75 T: 61 QT: 324 QTc: 438 Interpretive Statements Sinus tachycardia Left atrial enlargement Consider anteroseptal infarct No previous ECG available for comparison Electronically Signed On 03-27-2021 12:58:21 EDT by Sam Liu
--- NOTE | 2021-03-27 12:59 | Electrocardiograph Report ---
[facility] Test Date: 2021-03-25 Test Time: 22:32:34 Pat Name: LISA MENDOZA Department: Room: A477 1 Gender: F [employer]inter Installer: DAVID : [id number] Requested By: MATIAS MARTINES Order Number: [id number] Reading MD: Sam Liu Measurements Intervals [place] Rate: 82 P: 65 ND: 161 QRS: 0 QRSD: 92 T: 63 QT: 397 QTc: 464 Interpretive Statements Sinus rhythm Atrial premature complex No previous ECG available for comparison Electronically Signed On 03-27-2021 12:59:16 EDT by Sam Liu
== END 2021-03-26 11:25 | disposition home or self-care (01) ==
LOC: ED 16:59 → 4A 22:29
PROVIDERS: ADMIT Internal Medicine Geriatric Medicine; ATTEND Internal Medicine
DX: R07.89 Other chest pain (principal); I10 Essential (primary) hypertension; R94.31 Abnormal electrocardiogram [ECG] [EKG]; Z90.49 Acquired absence of other specified parts of digestive tract; Z98.890 Other specified postprocedural states
CPT/HCPCS: 36415; 71046; 80048; 80053; 80061; 83735; 84484; 85025; 85379; 85610; 85730; 93005; 93306; 96372; 99285; G0378; J1644

== ENCOUNTER 2021-11-29 21:51 | Emergency (ER) | payer BC ==
--- NOTE | 2021-11-30 00:33 | Emergency Department Report ---
HPI - General Chief Complaint: Nosebleed Time Seen by Provider: 11/30/21 00:00 - HPI HPI: 56-year-old female presents to the emergency department with a complaint of bleeding from the left nasal passage. This has been going on intermittently over the past 1 to 2 months. She was seen in urgent care in the recent past and "they were able to get it to stop." It went away for a while but started up again this evening. The patient says that she was holding pressure but it continued to bleed. She says "I think it is coming from my sinuses." She denies any past medical history. No recent travel or sick contacts at home. No trauma to the nose or face. ED Past Medical Hx - Past Medical History Previous Medical History?: No - Surgical History Past Surgical History?: Yes Hx Cholecystectomy: Yes Additional Surgical History: T&A. Bladder lesions removed (benign) - Social History Smoking Status: Never Smoker - Medications Home Medications: Home Medications Medication Instructions Recorded Confirmed Last Taken Type Ondansetron [Zofran ODT TAB] 4 mg PO Q8HR PRN #14 tab.rapdis 02/05/21 03/26/21 03/25/21 Rx Pantoprazole [Protonix TAB] 40 mg PO QDAY #30 tablet 02/05/21 03/26/21 03/25/21 Rx traMADoL [Ultram 50 MG tab] 50 mg PO Q4HR PRN #14 tablet 02/05/21 03/26/21 03/26/21 02:03 Rx Aspirin [Adult Aspirin] 81 mg PO DAILY #30 tablet. 03/26/21 Unknown Rx ED Review of Systems ROS: Stated complaint: NOSE BLEED Other details as noted in HPI Comment: All other systems reviewed and negative Constitutional: denies: chills, fever ENT: epistaxis. denies: throat pain, congestion Respiratory: denies: cough, shortness of breath Skin: denies: rash, lesions Neurological: denies: headache, weakness Physical Exam - Physical Exam Physical Exam: GENERAL: The patient is well-developed well-nourished. HENT: Normocephalic. Atraumatic. Patient has moist mucous membranes. Oropharynx is clear without tonsillar hypertrophy, erythema or exudates. No bleeding seen in the bilateral nasal passages. EYES: Extraocular motions are intact. NECK: Supple. Trachea is midline. CHEST/LUNGS: Clear to auscultation. There is no respiratory distress noted. HEART/CARDIOVASCULAR: Regular. There is no tachycardia. There is no murmur. ABDOMEN: There is no abdominal distention. SKIN: Skin is warm and dry. NEURO: The patient is awake, alert, and oriented. The patient is cooperative. The patient has no focal neurologic deficits. Normal speech. MUSCULOSKELETAL: There is no tenderness or deformity. ED Medical Decision Making - Medical Decision Making This patient presents to the emergency department with complaint of significant left-sided epistaxis. Overall she has been having intermittent epistaxis since just after giving. At the time of my examination I do not see any current bleeding. The patient had stopped a tissue inside of the left nasal passage and when she pulled it out there was only scant blood seen on that. Vital signs reassuring including being afebrile. I do not feel that any laboratory or imaging studies are indicated at this time. She has been given an outpatient referral for otolaryngology to follow-up regarding her recurrent epistaxis. We discussed how if she were to start having bleeding again that she should hold pressure with her head level for 20 minutes, and if this does not improve the bleeding then she will return to the emergency department. Critical Care Time: No Critical care attestation.: If time is entered above; I have spent that time in minutes in the direct care of this critically ill patient, excluding procedure time. ED Disposition Clinical Impression: Epistaxis Disposition: HOME / SELF CARE / HOMELESS Is pt being admited?: No Condition: Stable Instructions: Nosebleed, Adult Additional Instructions: Please follow-up with a primary care physician in the next few days. I am giving you a referral for a local ENT, Dr. Urena, to follow-up regarding your recurrent nosebleeds. If the nose starts to bleed again, hold pressure to both sides of the nose with your head level for 20 minutes. If you continue to have bleeding after this, return to the emergency department or an urgent care. Return to the emergency department with any worsening of your symptoms, new or concerning symptoms not addressed during this current emergency department visit, or with any acute distress. Referrals: VINAY URENA MD [Staff Physician] - 3-5 Days Time of Disposition: 00:35
[2021-11-30 01:25] VITALS: BP 130/94
== END 2021-11-30 00:50 | disposition home or self-care (01) ==
LOC: ED 21:51
DX: R04.0 Epistaxis (principal); Z90.49 Acquired absence of other specified parts of digestive tract
CPT/HCPCS: 99282